=== PATIENT | female | born 1955 | race Caucasian/White ===

== ENCOUNTER 2020-11-25 23:03 | Emergency (ER) | payer SELFPAY ==
[2020-11-25 23:10] VITALS: BP 163/79; PULSE 93; RESP 18; TEMP 37.8; O2SAT 92; BMI 34.3
--- NOTE | 2020-11-25 23:26 | W.ED.FEVER ---
HPI - Fever General: Chief Complaint: Fever Stated Complaint: fever, n/v Time Seen by Provider: 11/25/20 23:04 Source: patient Mode of arrival: ambulatory Limitations: no limitations History of Present Illness: HPI Narrative: 65-year-old female who had a fever since last night. She states she has had some confusion and generalized weakness as well. She states she gets urinary tract infections often. 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 She has to self cath as well. She states she has had some diarrhea. She has had a mild cough. Denies any vomiting. Patient does have a low-grade fever here as well. She states she has had confusion especially last night when her fever was high. She is awake and alert able answer all my questions appropriately here currently. Associated symptoms: Reports chills and diarrhea; Deny chest pain, dysuria or headache(s) Review of Systems Const: Reports: fever(s), chills and body aches Eyes: Denies: blurry vision or eye discomfort ENMT: Denies: throat pain or dental pain Card: Denies: chest pain Resp: Denies: dyspnea GI: Reports: diarrhea : Denies: dysuria Musc: Denies: neck pain or back pain Skin/Breast: Denies: rash Neuro: Denies: headache(s) Psych: Denies: depression Tobias/Lymph: Denies: easy bruising All/Imm: Denies: urticaria Physical Exam Const: COMMON NORMALS: no acute distress, patient oriented x3 and healthy appearing HENMT: COMMON NORMALS: normocephalic and atraumatic HEAD & SCALP: normocephalic and atraumatic Eye: COMMON NORMALS: Equal, round and reactive pupils present and EOMs intact bilaterally PUPIL: Yes Equal, round and reactive pupils present Neck/C-Spine: COMMON NORMALS: full ROM and supple Chest: COMMONS NORMALS: normal inspection of the chest and normal palpation of entire chest wall Resp: COMMON NORMALS: normal respiratory effort, No retractions, No use of accessory muscles and clear to auscultation bilaterally AUSCULTATION: clear to auscultation bilaterally Cardio: COMMON NORMALS: regular rate, regular rhythm and No murmurs present (Cardio) RATE: regular rate RHYTHM: regular rhythm GI: COMMON NORMALS: Normal to inspection, nondistended, normoactive bowel sounds present, Soft to palpation, non-tender and no masses PALPATION: Yes Soft to palpation Extremity: COMMON NORMALS: normal to inspection and full ROM Neuro: COMMON NORMALS: patient oriented x3, moves all extremities and no focal motor deficits Psych: COMMON NORMALS: mental status grossly normal, Normal thought process present and cooperative THOUGHT PROCESS: Normal thought process present Skin: COMMON NORMALS: no rashes or lesions noted and no wounds GENERAL SKIN EXAM: no rashes or lesions noted Course Vital Signs: Vital signs: Vital Signs Temperature 100.1 F H 11/25/20 23:10 Pulse Rate 93 11/25/20 23:10 Respiratory Rate 18 11/25/20 23:10 Blood Pressure 163/79 11/25/20 23:10 Pulse Oximetry 92 11/25/20 23:10 MDM - Fever MDM Narrative: Medical decision making narrative: Patient presents with acute cystitis along with a slight pneumonia. I spoke at length with her and her and strongly recommended admission here for IV antibiotics. 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 I informed her she could get much worse and I feel she needs to be admitted for IV to [facility]. She informed there is no way that she was able to stay here and refused admission. She states she will go to the [facility] when she gets back there. I informed her she gets any worse she is to return. She understands agrees to plan. We will place her on antibiotics. Lab Data: Labs: Lab Results 11/25/20 11/25/20 11/25/20 Range/Units 23:40 23:40 23:40 WBC 10.5 H (4.0-10.0) 10^3/ uL RBC 3.26 L (4.1-5.3) 10^6/u L Hgb 10.8 L (11.5-15.3) g/dL Hct 35.1 L (37.0-47.0) % MCV 107.7 H (81-99) fL MCH 33.1 (28.0-34.0) pg MCHC 30.8 (30.0-36.0) g/dL RDW 13.6 (12.1-15.1) % Plt Count 106 L (130-400) 10^3/c mm MPV 11.0 H (7.4-10.4) fL Neut % (Auto) 78.2 % Lymph % (Auto) 6.5 % Frederick % (Auto) 10.5 % Eos % (Auto) 4.1 % Baso % (Auto) 0.3 % Neut # (Auto) 8.24 H (1.8-7.7) 10^3/u L Lymph # (Auto) 0.7 L (0.8-4.8) 10^3/u L Frederick # (Auto) 1.1 H (0.2-0.9) 10^3/u L Eos # (Auto) 0.4 (0.0-0.8) 10^3/u L Baso # (Auto) 0.0 (0.0-0.1) 10^3/u L Nucleated RBC % (a uto) 0 % Nucleated RBCs # 0.0 /100WBC Sodium 138 (136-145) mmol/L Potassium 4.6 (3.5-5.1) mmol/L Chloride 111 H (98-107) mmol/L Carbon Dioxide 14 L (22-29) mmol/L Anion Gap 17.6 (5-19) BUN 42 H (8-23) mg/dL Creatinine 1.9 H (0.5-0.9) mg/dL GFR Calculation 26.6 L (90-130) mL/min Glucose 167 H (65-115) mg/dL Calculated Osmolal ity 300 H (285-295) mOsm/k g Lactate 1.1 (0.5-2.2) mmol/L Calcium 9.0 (8.5-10.5) mg/dL Total Bilirubin 0.3 (0.15-1.2) mg/dL AST 19 (0-32) U/L ALT 14 (0-33) U/L Alkaline Phosphata se 99 (35-105) IU/L Total Protein 6.7 (6.6-8.7) g/dL Albumin 3.9 (3.5-5.2) g/dL Globulin 2.8 (1.3-4.6) g/dL Lipase 33 (13-60) U/L Urine Color (Yellow) Urine Appearance (CLEAR) Urine pH (5-7) Ur Specific Gravit y (1.005-1.030) Urine Protein (Negative) Urine Glucose (UA) (Normal) Urine Ketones (Negative) Urine Blood (Negative) Urine Nitrate (Negative) Urine Bilirubin (Negative) Urine Urobilinogen (Negative) mg/dL Ur Leukocyte Hayley ase (Negative) Urine RBC (0-2) /hpf Urine WBC (0-5) /hpf Ur Squamous Epith Cells (0-5) /hpf Amorphous Sediment Urine Bacteria (NONE) /hpf SARS-CoV-2 Ag (Rap id) (Negative) 11/26/20 11/26/20 Range/Units 00:02 00:02 WBC (4.0-10.0) 10^3/ uL RBC (4.1-5.3) 10^6/u L Hgb (11.5-15.3) g/dL Hct (37.0-47.0) % MCV (81-99) fL MCH (28.0-34.0) pg MCHC (30.0-36.0) g/dL RDW (12.1-15.1) % Plt Count (130-400) 10^3/c mm MPV (7.4-10.4) fL Neut % (Auto) % Lymph % (Auto) % Frederick % (Auto) % Eos % (Auto) % Baso % (Auto) % Neut # (Auto) (1.8-7.7) 10^3/u L Lymph # (Auto) (0.8-4.8) 10^3/u L Frederick # (Auto) (0.2-0.9) 10^3/u L Eos # (Auto) (0.0-0.8) 10^3/u L Baso # (Auto) (0.0-0.1) 10^3/u L Nucleated RBC % (a uto) % Nucleated RBCs # /100WBC Sodium (136-145) mmol/L Potassium (3.5-5.1) mmol/L Chloride (98-107) mmol/L Carbon Dioxide (22-29) mmol/L Anion Gap (5-19) BUN (8-23) mg/dL Creatinine (0.5-0.9) mg/dL GFR Calculation (90-130) mL/min Glucose (65-115) mg/dL Calculated Osmolal ity (285-295) mOsm/k g Lactate (0.5-2.2) mmol/L Calcium (8.5-10.5) mg/dL Total Bilirubin (0.15-1.2) mg/dL AST (0-32) U/L ALT (0-33) U/L Alkaline Phosphata se (35-105) IU/L Total Protein (6.6-8.7) g/dL Albumin (3.5-5.2) g/dL Globulin (1.3-4.6) g/dL Lipase (13-60) U/L Urine Color Yellow (Yellow) Urine Appearance Cloudy (CLEAR) Urine pH 5 (5-7) Ur Specific Gravit y 1.010 (1.005-1.030) Urine Protein 2+ H (Negative) Urine Glucose (UA) Norm (Normal) Urine Ketones Negative (Negative) Urine Blood 3+ H (Negative) Urine Nitrate Positive H (Negative) Urine Bilirubin 1+ H (Negative) Urine Urobilinogen Norm (Negative) mg/dL Ur Leukocyte Hayley ase 2+ H (Negative) Urine RBC 0-4 H (0-2) /hpf Urine WBC Too numerous to c nt H (0-5) /hpf Ur Squamous Epith Cells 0-4 H (0-5) /hpf Amorphous Sediment Not Reportable Urine Bacteria 4+ H (NONE) /hpf SARS-CoV-2 Ag (Rap id) Negative (Negative) Imaging Data^: CXR: Attestation: I personally reviewed and interpreted this imaging study as follows: Radiologist's impression: [address] [address] XRay Report Signed Patient: Renato Sapp Unit #: [id number] : 1955 Age/Sex: 65 / F ADM Date: 11/25/20 Loc: ER Room/Bed: Attending Dr: Ordering Provider/Ordering MD: Inge Ball MD Date of Service: 11/25/20 Procedure(s): XR chest 1V portable [id number] Accession Number(s): [id number] Report Number: [id number] PROCEDURE INFORMATION: Exam: XR Chest Exam date and time: 11/25/2020 11:32 PM Age: 65 years old Clinical indication: Cough and fever TECHNIQUE: Imaging protocol: XR of the chest. Views: 1 view. COMPARISON: No relevant prior studies available. FINDINGS: Lungs: Increased interstitial markings suspicious for infectious/inflammatory process. No evident lobar consolidation. Pleural spaces: Unremarkable. No pleural effusion. No pneumothorax. Heart/Mediastinum: Unremarkable. No cardiomegaly. Bones/joints: No acute findings. XR/XR chest 1V portable [id number] IMPRESSION: Increased interstitial markings suspicious for infectious/inflammatory process. Discharge Plan Discharge Patient Disposition: Home Clinical Impression: Pneumonia Acute cystitis Qualifiers: Hematuria presence: without hematuria Qualified Code(s): N30.00 - Acute cystitis without hematuria Condition: Stable Prescriptions: New cephalexin 500 mg capsule 500 mg PO TID 7 Days Qty: 21 RF: 0 Zithromax Z-Jayson 250 mg tablet See Rx Instructions PO .COMPLEX Qty: 6 RF: 0 Discharge Orders: Discharge ED (Routine); Ordered 11/26/20 Ordered By: Inge Ball Discharge Diet: Advance as tolerated Discharge Activity: Resume usual activity Patient Instructions: Urinary Tract Infection in Women (ED) Coding Level of Care Code ED Room Clerk for Chg Fwd Exam Comprehensive
--- NOTE | 2020-11-25 23:31 | XRR_ITS ---
PROCEDURE INFORMATION: Exam: XR Chest Exam date and time: 11/25/2020 11:32 PM Age: 65 years old Clinical indication: Cough and fever TECHNIQUE: Imaging protocol: XR of the chest. Views: 1 view. COMPARISON: No relevant prior studies available. FINDINGS: Lungs: Increased interstitial markings suspicious for infectious/inflammatory process. No evident lobar consolidation. Pleural spaces: Unremarkable. No pleural effusion. No pneumothorax. Heart/Mediastinum: Unremarkable. No cardiomegaly. Bones/joints: No acute findings. XR/XR chest 1V portable [id number] IMPRESSION: Increased interstitial markings suspicious for infectious/inflammatory process.
[2020-11-25] MEDS: sodium chloride 0.9% 1,000 ML 999 ML IV (23:36)
[2020-11-25 23:52] LABS: Basophils % 0.3 %; Eosinophils # 0.4 10^3/uL (0.0-0.8); Eosinophils % 4.1 %; Hematocrit 35.1 % (37.0-47.0); Hemoglobin 10.8 g/dL (11.5-15.3); Lymphocytes # 0.7 10^3/uL (0.8-4.8); Lymphocytes % 6.5 %; Mean Corpuscular HGB Conc 30.8 g/dL (30.0-36.0); Mean Corpuscular Hemoglobin 33.1 pg (28.0-34.0); Mean Corpuscular Volume 107.7 fL (81-99); Monocytes # 1.1 10^3/uL (0.2-0.9); Monocytes % 10.5 %; Neutrophils # 8.24 10^3/uL (1.8-7.7); Neutrophils % 78.2 %; Nucleated Red Blood Cells % 0 %; Platelet Count 106 10^3/cmm (130-400); Red Blood Count 3.26 10^6/uL (4.1-5.3); Red Cell Distribution Width 13.6 % (12.1-15.1); White Blood Count 10.5 10^3/uL (4.0-10.0)
[2020-11-26 00:07] LABS: Alanine Aminotransferase 14 U/L (0-33); Albumin Level 3.9 g/dL (3.5-5.2); Alkaline Phosphatase 99 IU/L (35-105); Blood Urea Nitrogen 42 mg/dL (8-23); Carbon Dioxide 14 mmol/L (22-29); Chloride 111 mmol/L (98-107); Globulin 2.8 g/dL (1.3-4.6); Glomerular Filtration Rate 26.6 mL/min (90-130); Glucose 167 mg/dL (65-115); Lactate (Lactic Acid level) 1.1 mmol/L (0.5-2.2); Lipase 33 U/L (13-60); Osmolality Calculated 300 mOsm/kg (285-295); Sodium 138 mmol/L (136-145); Total Bilirubin 0.3 mg/dL (0.15-1.2); Total Protein 6.7 g/dL (6.6-8.7)
[2020-11-26 00:13] LABS: Anion Gap 17.6 (5-19); Aspartate Amino Transferase 19 U/L (0-32); Potassium 4.6 mmol/L (3.5-5.1)
[2020-11-26 00:17] LABS: Add Urine Microscopic? YES; Bilirubin Urine 1+ (Negative); Blood Urine 3+ (Negative); Glucose Urine UA Norm (Normal); Ketones Urine Negative (Negative); Leukocyte Esterase Urine 2+ (Negative); Nitrate Urine Positive (Negative); Protein Urine 2+ (Negative); RBC Urine 0-4 /hpf (0-2); Urine Appearance Cloudy (CLEAR); Urine Color Yellow (Yellow); Urobilinogen Urine Norm (Negative); WBC Urine TOO NUMEROUS TO CNT /hpf (0-5); pH Urine 5 (5-7)
[2020-11-26 00:18] LABS: Add Urine Culture? Yes; Bacteria Urine 4+ /hpf; Squamous Epithelial Cell Urine 0-4 /hpf (0-5)
[2020-11-26 00:25] LABS: Slide Review Slide Review Perform
[2020-11-26] MEDS: cefTRIAXone 1,000 MG in sodium chloride 0.9% (plus) 50 ML 100 MG IV (00:30)
[2020-11-26 00:35] LABS: SARS Covid-2 Antigen Negative (Negative)
[2020-11-26 01:19] VITALS: BP 159/80; PULSE 89; RESP 19; O2SAT 93
--- NOTE | 2020-11-27 03:42 | PC.NURSE ---
Mita from lab called positive blood culture report of no organisms seen. Notified Dr. Foster, no interventions need per Dr. Foster
== END 2020-11-26 01:19 | disposition home or self-care (01) ==
PROVIDERS: Emergency Provider Emergency Medicine
DX: N30.00 Acute cystitis without hematuria (principal); J18.9 Pneumonia, unspecified organism
CPT/HCPCS: 71045; 80053; 81001; 83605; 83690; 85025; 87040; 87086; 87205; 87426; 96365; 99283; J0696; J7030

== ENCOUNTER 2021-05-18 12:36 | Outpatient (CLI) | payer OTHER, SELFPAY ==
--- NOTE | 2021-05-18 12:48 | XR_ITS ---
WS: [id number] Exam: XR ribs LT 2V* [id number] Date/Time of Exam: 05/18/2021 12:48 PM Reason For Exam: pain after injury There is a minimally displaced fracture involving the lateral margin of the left 10th rib. No other a cute fractures are seen. The left lung is fully expanded and clear. No pleural or pulmonary reactive changes. XR/XR ribs LT 2V* [id number] IMPRESSION: 1. Minimally displaced fracture of the anterior left 10th rib.
== END 2021-05-18 12:37 | disposition home or self-care (01) ==
PROVIDERS: Visit Provider Nurse Practitioner
DX: S22.32XA Fracture of one rib, left side, initial encounter for closed fracture (principal); W19.XXXA Unspecified fall, initial encounter
CPT/HCPCS: 71100